=== PATIENT | female | born 1955 | race African-American/Black ===

== ENCOUNTER 2023-04-16 14:41 | Emergency (ER) | payer MEDICARE ==
[~2023-04-16] VITALS: Ht 160 cm; Wt 86.0 kg
[~2023-04-16 14:41] MED LIST: MELO-105 MT
[2023-04-16 14:47] VITALS: BP 129/77; PULSE 64; RESP 12; TEMP 98.5; O2SAT 100
[2023-04-16] MEDS ORDERED: METH-653 MT ×3 (16:39→16:46)
[2023-04-16] MEDS ORDERED: TOPUD PO ×3 (16:39→16:46)
[2023-04-16] MEDS ORDERED: IBUP-2028 MT ×3 (16:39→16:46)
[2023-04-16] MEDS ORDERED: KETOROLAC 60MG/2ML VIAL IM ONE (16:45)
[2023-04-16] MEDS ORDERED: ACETAMINOPHEN 325MG TABLET PO ONE (16:45)
== END 2023-04-16 18:47 | disposition home or self-care (01) ==
LOC: ER 14:41
DX: M48.02 Spinal stenosis, cervical region (principal); M47.892 Other spondylosis, cervical region; M25.78 Osteophyte, vertebrae; R51.9 Headache, unspecified; I10 Essential (primary) hypertension
CPT/HCPCS: 99284